=== PATIENT | female | born 1955 | race Caucasian/White ===

== ENCOUNTER 2017-10-10 16:34 | Inpatient (IN) | payer OTHER ==
[~2017-10-10] VITALS: Ht 157.4 cm; Wt 66.9 kg
--- NOTE | ~2017-10-10 | PR ---
[place], [place] PROGRESS NOTE NAME: UMAIR MARROQUIN UNIT #: [id number] ROOM: 315 DOCTOR: ROBERTA DAVIS MD BIRTHDATE: [birth year] DOS: 10/13/2017 CHIEF COMPLAINT: "I slept in the chair last night, Dr. Davis, but I'm feeling better." SUMMARY OF THE VISIT: The patient was interviewed in the dining area. She engaged more readily in pleasant conversation. She was not as loud and overly demonstrative as she was upon admission. Staff noticed similar changes as she is beginning to be much more muted and more normal in her conversations. She reports some side effects with the medicine mainly some residual somnolence. I did encourage her to allow time to pass as this should dissipate and she nodded in approval. MENTAL STATUS: She is alert and oriented. Mood does seem to be trending more towards euthymia. Affect is much more appropriate. Her speech rate and pattern is normalizing. There is no pressured speech. There is no circumstantiality as previously noted. There is no overt hypomania, danny or psychosis and memory for the most part is intact. PLAN: I will maintain her current psychotropic regimen, continue to engage in individual and hoskins milieu activity, planning to return to the least restrictive environment when psychiatrically stable. ROBERTA DAVIS MD CM:PNTRANS [phone] ROBERTA DAVIS MD 10/14/17 0557 interface
--- NOTE | ~2017-10-10 | WRIGHTHP ---
[place], [place] PATIENT HISTORY AND PHYSICAL EXAM NAME: UMAIR MARROQUIN UNIT #: [id number] ROOM: 315 DOCTOR: ROBERTA RIVAS MD BIRTHDATE: [birth year] DOS: 10/11/2017 CHIEF COMPLAINT: "I guess I went off the deep end." HISTORY OF PRESENT ILLNESS: This is a 62-year-old white female known to me from previous admission here to the [facility]. The patient presented to [facility] emergency room acutely psychotic and delusional. The patient was brought in there by her son. Per her report, she has not slept for 5 days straight and became increasingly manic and delusional. She was actively hallucinating and was very fragmented in her thinking. Because she was so grossly psychotic and decompensated, [place] did feel that she needs to have an inpatient stay to restabilize her. She is admitted now to rule out any organic factors and to restabilize on medication. PAST MEDICAL HISTORY: Remarkable for diabetes, GERD, hyperlipidemia, hypertension, uterine cancer, and a lengthy history of bipolar as well as borderline personality disorder. SOCIAL HISTORY: The patient socially does not drink alcohol or use illicit drugs. She has smoked 2 packs of cigarettes per day for 25 years. ALLERGIES: She lists allergies to seasonal issues. STRENGTHS: Good verbal skills, ambulatory, relatively healthy. WEAKNESSES: Longstanding psychiatric history and poor coping skills. MENTAL STATUS: She is alert and oriented to person, place, and time. Mood is rather labile and inappropriate. She jumps from topic to topic and is somewhat circumstantial in her thinking. She is grossly delusional and at times, bizarre statements are made. Short-term memory does have gaps, but I think this is because she is so fragmented. DIAGNOSES: Bipolar type 1, mixed and borderline personality disorder. PLAN: I have restarted her on Geodon 80 mg at bedtime. I will go ahead and increase this to 120 with a target dose of 160 in mind. Engage in individual and hoskins milieu activity, returning to the least restrictive environment when psychiatrically stable. [place], [place] PATIENT HISTORY AND PHYSICAL EXAM NAME: UMAIR MARROQUIN UNIT #: [id number] ROOM: 315 DOCTOR: ROBERTA RIVAS MD BIRTHDATE: [birth year] ROBERTA RIVAS MD CM:HISPHYS:PATIENT HISTORY AND PHYSICAL EXAMINATION [id number] ROBERTA RIVAS MD 10/11/17 1214 interface
--- NOTE | ~2017-10-10 | PR ---
[place], [place] PROGRESS NOTE NAME: UMAIR [facility]ARROQUIN [id number] UNIT #: [id number] ROOM: 315 DOCTOR: RESHMA TROTTER DO BIRTHDATE: [birth year] DOS: 10/15/2017 PSYCHIATRIC PROGRESS NOTE CHIEF COMPLAINT: "Higher music, need to soften music." SUMMARY OF VISIT: A 62-year-old female was interviewed while sitting in the dining mooney, listening to music. The patient reports that she would like to go home, so she can sit on her patio and sun herself. She does not want to wait until Friday; however, the patient is willing to stay another day. She complains of some dizziness, but is sleeping okay. The patient states she sometimes gets upset, but when she does, she meditates and sings in her room when that happens. The patient continues to request a razor to shave her female parts, even though nursing has informed her that they do not plan on doing that here. The patient would also like some sunglasses. She states that she has cataracts and the lights are bothering her. The patient also needs a happy medium with her Depakote. Per nursing, the patient slept about 6 hours last night. Nursing also reports that she has been talking to another male patient in the unit and has been asking him for his address, so he can be her dance partner. MENTAL STATUS EXAMINATION: She is alert and oriented to person, place, and time. Mood is more euthymic. Affect is more appropriate. At times, though the patient has some hypomania present in conversations, there is no danny. There are no visual or auditory hallucinations. Short and long-term memory is intact. PLAN: 1. Valproic acid level is 103.1. 2. We will decrease Depakote dose to 250 in the a.m. and to continue to have 500 in the p.m. 3. Continue to engage in individual and hoskins milieu activity, returning to the least restrictive environment when psychiatrically stable. ADDENDUM 10/30/17 2:06 P.M.: Above note reviewed. Agree with observations, recommendations, and overall treatment plan. Reshma Trotter DO [place], [place] PROGRESS NOTE NAME: UMAIR MARROQUIN UNIT #: [id number] ROOM: 315 DOCTOR: RESHMA TROTTER DO BIRTHDATE: [birth year] ROBERTA RIVAS MD CM:PNEVERETT [phone] RESHMA TROTTER DO 10/30/17 1409 ANA MARIA.LLR
--- NOTE | ~2017-10-10 | DS ---
[place], [place] DISCHARGE SUMMARY NAME[id number] UN[facility] #: [id number] ROOM: 315 DOCTOR: ROBERTA RIVAS MD BIRTHDATE: [birth year] DOS: 10/16/2017 CHIEF COMPLAINT: "I guess I went off the deep end." HISTORY OF PRESENT ILLNESS: This is a 62-year-old white female known to me from previous admissions here to the [facility]. The patient presented to [facility] Emergency Room acutely psychotic and delusional. The patient was brought there by her son, reportedly had not slept for 5 days straight and was increasingly manic and delusional. She was actively hallucinating at that time and was very fragmented in her thinking and unable to converse normally with the Emergency Room physicians. Because she was so decompensated and grossly psychotic, [place] felt that the patient needed an inpatient stay to rule out any organic factors and to attempt to stabilize on medication determining then the least restrictive environment to which she could be discharged to. PAST MEDICAL HISTORY: Remarkable for diabetes, GERD, hyperlipidemia, hypertension, uterine cancer and a history of bipolar disorder and borderline personality disorder. SUMMARY: The patient does not drink alcohol or use illicit drugs. She smokes 2 packs of cigarettes daily and has done so for the last 25 years. ALLERGIES: She lists allergies to SEASONAL ISSUES. STRENGTHS: Good verbal skills, ambulatory and supportive family. WEAKNESSES: Longstanding psychiatric history with poor coping skills. SUMMARY OF THE HOSPITAL COURSE: The patient was admitted to the unit where she was restarted on Geodon 80 mg at bedtime. Per her report and family's report, she had done extremely well on the Geodon, but had become noncompliant with it. She was willing to restart it. The dose was rapidly increased from 80 mg at bedtime to its stabilizing dose of 40 mg in the morning and 120 mg at bedtime. Additionally, her antidepressants were discontinued. Because it was feared that they were feeling her danny, she was started instead on Depakote 500 mg 3 times daily. This along with the Geodon did help to stabilize her mood, however, her Depakote level was mildly elevated at 103.1, so the dose was decreased from 500 mg 3 times daily to 250 mg in the morning and 500 mg then twice daily. With this combination of medications, the patient reached her baseline while she was still somewhat disjointed and fragmented and mildly hypomanic, this is her baseline from my previous interactions with her. She tolerated the medicines well. There was no sedation, somnolence, extrapyramidal symptoms or tardive dyskinesia. Likewise, she was not suicidal, homicidal or self-injurious. She voiced positive plans for the future and was then discharged back into the community. MENTAL STATUS AT DISCHARGE: The patient is alert and oriented to person, place and time. Mood does seem to be more euthymic with some residual hypomania. There are no gross psychotic symptoms. [facility] [place] [place] DISCHARGE SUMMARY NAME: UMAIR MARROQUIN UNIT #: [id number] ROOM: [facility] DOCTOR: ROBERTA RIVAS MD BIRTHDATE: [birth year] disjointed, but again this is baseline behavior. Memory for the most part is intact. FINAL DIAGNOSIS: Schizoaffective disorder. DISPOSITION: The patient is to return home. Her prescriptions have been printed and will be sent home with her. She will have followup in the community. She is medically and psychiatrically stable. Her biopsychosocial needs are adequately being met by her psychiatric provider as well as her family. ROBERTA RIVAS MD CM:SANA [id number] ROBERTA RIVAS MD 10/16/17 1713 interface
--- NOTE | ~2017-10-10 | PR ---
[place], [place] PROGRESS NOTE NAME: [facility]IN [id number] UNIT #: [id number] ROOM: 315 DOCTOR: RESHMA TROTTER DO BIRTHDATE: [birth year] DOS: 10/14/2017 CHIEF COMPLAINT: "Good morning, how are you." SUMMARY OF VISIT: A 62-year-old female was interviewed while sitting in the dining mooney waiting for breakfast. The patient reports that yesterday was good. However, nurse practitioner was upsetting her. However, when prompting what was upsetting her, she states she is unable to remember why. HISTORY OF PRESENT ILLNESS: The patient reports she got upset today as well because asked the nurse for her name and states the nurse snapped at her. The patient requests to have nail maltese in order to paint her nails and does not care what color it is. The patient also is requesting to have a razor to shave her private female parts. The patient states that she has been using deep breathing exercises and soft music in the morning to help her relax. She also would like to be discharged before Friday because she has to go to the [facility] since their prices are half off on Fridays. We mentioned to the patient regarding possible [facility] when she does leave this unit and the patient states that she has these take place in the past; however, she does not want to be there for 4 weeks. Per nursing staff, the patient has been sexually inappropriate and refusing to wear pants and at times, flashing people. The patient did eventually wear her pants, but was upset she had to wear them because it made her look like a man. Nursing reports that patient slept about 6 hours last night; however, was continuously up and down throughout the night with episodes of being paranoid and having a fear of her roommate because her roommate would be staring at her. MENTAL STATUS EXAMINATION: She is alert and oriented to person, place, and time. Mood is becoming more euthymic. Affect is becoming more appropriate. Speech is more normal and not pressured. There is no hypomania or danny currently present. There appears to be some paranoid thinking regarding the patient's roommate and nursing staff. There are no auditory or visual hallucinations. Short and long-term memory is mostly intact. PLAN: 1. Check valproic acid level in a.m. 2. Continue current medication regimen. 3. Continue to engage in individual and hoskins milieu activity, return to least restrictive environment when psychiatrically stable. ADDENDUM Dr. Rivas 10/15 03:30 p.m.: Above note reviewed. Agree with observations, recommendations, and overall treatment plan. [place], [place] PROGRESS NOTE NAME: LOPEZUMAIR WELLINGTON UNIT #: [id number] ROOM: [facility] DOCTOR: RESHMA TROTTER DO BIRTHDATE: [birth year] Reshma Trotter DO ROBERTA RIVAS MD CM:PNTRANS [id number] T: RESHMA TROTTER DO 10/15/17 1601 ANA MARIA.[email or web address]
--- NOTE | ~2017-10-10 | PR ---
[place], [place] PROGRESS NOTE NAME: UMAIR MARROQUIN UNIT #: [id number] ROOM: 315 DOCTOR: ROBERTA DAVIS MD BIRTHDATE: [birth year] DOS: 10/12/2017 INTERVAL NOTE CHIEF COMPLAINT: "Oh Dr. Davis, I kind of feel up and down." SUMMARY OF THE VISIT: The patient was interviewed in the dining area where she was sitting with male peers. She was somewhat overly demonstrative and intrusive. Nurses report similar behavior and that she does tend to be somewhat controlling and loud at times. She continues to complain of marked mood swings and some irritability. MENTAL STATUS: She is alert and oriented with time gaps. Mood does seem to be rather labile. Affect at times inappropriate. She jumps from topic to topic and at times is circumstantial in her thinking. She does not always complete her thought process well. She is tolerating the current medication regimen, however. PLAN: I will go ahead and increase Geodon to 40 mg in the morning and 120 mg at night and add Depakote 500 mg t.i.d. to stabilize her mood more effectively, engage in individual and hoskins milieu activity, returning to the least restrictive environment when psychiatrically stable. ROBERTA DAVIS MD CM:PNTRANS [phone] ROBERTA DAVIS MD 10/13/17 0550 interface
[~2017-10-10 16:34] MED LIST: BENZTROPINE MESY2 MG PO; CETIRIZINE10 MG PO; DIVALPROEX SOD500 MG PO; GLUCOPHAGE1000 MG PO; HALDOL5 MG PO; HYDROXYZINE HCL10 MG PO; LAMICTAL100 MG PO; LIPITOR20 MG PO; MIRTAZAPINE15 M2 PO; OMEPRAZOLE MAGN20 MG PO; TRAD5TAB1 PO; VITAMIN C500 M4 PO; VITAMIN D1000 IU PO; VITAMIN E400 UNI2 PO; ZIPRASIDONE HCL80 M1 PO; ZOLOFT100 MG PO
[2017-10-10] MEDS ORDERED: DEPAKOTE DR500 MG PO (18:04)
[2017-10-10] MEDS ORDERED: IRON325 M1 PO (18:04)
[2017-10-10] MEDS ORDERED: CYMBALTA60 MG PO (18:10)
[2017-10-10 20:01] VITALS: BP 105/75
[2017-10-10 21:14] VITALS: BP 105/75
[2017-10-11 01:04] LABS: BILIRUBIN NEGATIVE (NEGATIVE); BLOOD NEGATIVE (NEGATIVE); CLARITY CLEAR (CLEAR); COLOR YELLOW (YELLOW); GLUCOSE NEGATIVE (NEGATIVE); KETONE NEGATIVE (NEGATIVE); LEUKO ESTERASE NEGATIVE (NEGATIVE); NITRITE NEGATIVE (NEGATIVE); UROBILINOGEN 0.2 E.U./dl (0.2-1.0)
[2017-10-11 06:21] LABS: BASO # 0.1 10*3/uL (0.0-0.1); BASO % 0.6 % (0.0-1.0); EOS # 0.2 10*3/uL (0.0-0.4); HEMATOCRIT 38.3 % (37.0-47.0); HEMOGLOBIN 12.1 g/dl (12.0-16.0); LYMPH # 2.3 10*3/uL (1.3-4.4); LYMPH % 28.2 % (27.0-41.0); MEAN CELL VOLUME 94.3 fl (81.0-99.0); MEAN CORPUSCULAR HGB 29.8 pg (27.0-31.0); MEAN CORPUSCULAR HGB CONC 31.6 g/dl (33.0-37.0); MEAN PLATELET VOLUME 8.5 fl (9.6-12.3); MONO # 0.6 10*3/uL (0.1-1.0); MONO % 7.9 % (3.0-9.0); NEUT # 4.9 10*3/uL (2.3-7.9); NEUT % 60.1 % (47.0-73.0); PLATELET COUNT AUTOMATED 243 10*3/uL (130-400); RED BLOOD COUNT 4.06 10*6/uL (4.10-5.10); RED CELL DISTRI WIDTH 13.4 % (0-14.5); WHITE BLOOD COUNT 8.1 10*3/uL (4.8-10.8)
[2017-10-11 06:56] LABS: ALBUMIN 3.5 gm/dl (3.1-4.5); ALKALINE PHOSPHATASE 102 U/L (45-117); BUN 14 mg/dl (7-24); CHLORIDE 107 mmol/L (98-107); CHOLESTEROL 110 mg/dL (<200); CREATININE 1.06 mg/dL (0.55-1.02); HDL CHOLESTEROL 37 mg/dl (40-60); LDL CHOLESTEROL 46 mg/dL (9-159); POTASSIUM 4.5 mmol/L (3.5-5.1); SGOT/AST 8 IU/L (3-35); SGPT/ALT 29 U/L (12-78); SODIUM 142 mmol/L (136-145); TOTAL PROTEIN 7.4 gm/dL (6.4-8.2); TRIGLYCERIDES 134 mg/dl (<150); VLDL CHOLESTEROL 27 mg/dL (6-40)
[2017-10-11 07:04] LABS: THYROID STIM HORMONE (HS) 0.552 uIU/ml (0.358-4.75)
[2017-10-11 07:39] LABS: VITAMIN D, 25-HYDROXY 39.4 ng/mL (30-100)
[2017-10-11 08:38] VITALS: BP 100/59
[2017-10-11 08:53] VITALS: BP 100/59
[2017-10-11 19:53] VITALS: BP 105/60
[2017-10-12 07:51] VITALS: BP 94/62
[2017-10-12 19:56] VITALS: BP 110/62
[2017-10-13 07:34] VITALS: BP 106/72
[2017-10-13 20:04] VITALS: BP 114/77
[2017-10-14 09:14] VITALS: BP 118/77
[2017-10-14 19:54] VITALS: BP 141/73
[2017-10-15 07:41] VITALS: BP 111/76
[2017-10-15 20:00] VITALS: BP 124/69
[2017-10-16 07:19] VITALS: BP 104/61
[2017-10-16] MEDS ORDERED: LAMOTRIGINE100 MG PO (08:23)
[2017-10-16] MEDS ORDERED: ZIPRASIDONE HCL80 M1 PO (08:24)
[2017-10-16] MEDS ORDERED: DIVALPROEX SOD250 MG PO (08:24)
[2017-10-16] MEDS ORDERED: ZIPRASIDONE HCL40 MG PO (08:24)
[2017-10-16] MEDS ORDERED: DIVALPROEX SOD500 MG PO (08:24)
== END 2017-10-16 12:53 | disposition home or self-care (01) | DRG 885 ==
LOC: 3N 16:34
PROVIDERS: Psychiatry & Neurology Psychiatry
DX: F25.9 Schizoaffective disorder, unspecified (principal); E11.9 Type 2 diabetes mellitus without complications; F60.3 Borderline personality disorder; E66.3 Overweight; F31.9 Bipolar disorder, unspecified; F17.210 Nicotine dependence, cigarettes, uncomplicated; Z96.1 Presence of intraocular lens; K21.9 Gastro-esophageal reflux disease without esophagitis; J30.2 Other seasonal allergic rhinitis; I10 Essential (primary) hypertension; E78.5 Hyperlipidemia, unspecified; Z85.54 Personal history of malignant neoplasm of ureter; Z68.27 Body mass index [BMI] 27.0-27.9, adult; Z98.41 Cataract extraction status, right eye; Z98.42 Cataract extraction status, left eye; Z90.710 Acquired absence of both cervix and uterus; Z98.51 Tubal ligation status; Z80.9 Family history of malignant neoplasm, unspecified; Z79.84 Long term (current) use of oral hypoglycemic drugs; Z79.899 Other long term (current) drug therapy